=== PATIENT | female | born 1985 ===

== ENCOUNTER 2017-12-28 18:36 | Inpatient (IN) | payer BC ==
[2017-12-28 18:36] VITALS: BMI 28.7
[2017-12-28 20:03] LABS: BASO % 0.5 % (0.0-2.0); EOS % 0.6 % (0.0-4.0); HEMOGLOBIN 13.7 g/dL (11.0-16.0); LYMPH # 2.2 K/uL (1.0-4.3); LYMPH % 26.2 % (20.0-40.0); MEAN CELL VOLUME 84.2 fL (81.0-99.0); MEAN CORPUSCULAR HEMOGLOBIN 28.6 pg (27.0-31.0); MEAN CORPUSCULAR HGB CONC 33.9 g/dL (33.0-37.0); MEAN PLATELET VOLUME 8.4 fL (7.2-11.7); MONO # 0.4 K/uL (0.0-0.8); MONO % 4.5 % (0.0-10.0); NEUT # 5.8 K/uL (1.8-7.0); NEUT % 68.2 % (50.0-75.0); NRBC % 0.1 % (0.0-2.0); RBC 4.81 Mil/uL (3.80-5.20); RED CELL DISTRIBUTION WIDTH 12.9 % (11.5-14.5); WHITE BLOOD COUNT 8.5 K/uL (4.8-10.8)
[2017-12-28 20:16] LABS: ALB/GLOB RATIO 0.9 (1.0-2.1); ALBUMIN 4.4 g/dL (3.5-5.0); ALT/SGPT 25 U/L (9-52); AST/SGOT 27 U/L (14-36); BLOOD UREA NITROGEN 12 mg/dL (7-17); CALCIUM 9.1 mg/dl (8.6-10.4); GFR AFRICAN-AMERICAN > 60; GFR NON-AFRICAN AMERICAN > 60
[2017-12-28] MEDS ORDERED: Charcoal 50 gm/240 ml Susp PO ONE (20:17)
[2017-12-28 20:19] LABS: ACETAMINOPHEN < 10.0 ug/mL (10.0-30.0); SALICYLATE < 1.0 mg/dL 1
[2017-12-28 20:20] LABS: SQUAMOUS EPITHIAL 4 /hpf (0-5); URINE BACTERIA RARE (<OCC); URINE BILIRUBIN NEGATIVE (NEGATIVE); URINE BLOOD 1+ (NEGATIVE); URINE CLARITY Clear (Clear); URINE COLOR Yellow (YELLOW); URINE GLUCOSE (UA) NORMAL (Normal); URINE LEUKOCYTE ESTERASE NEG Leu/uL (Negative); URINE PROTEIN NEGATIVE (NEGATIVE); URINE UROBILINOGEN NORMAL mg/dL (0.2-1.0)
[2017-12-28] MEDS ORDERED: Sodium Chloride 0.9% 1,000 ML IV ONE ×2 (20:23→20:36)
[2017-12-28] MEDS ORDERED: Charcoal 50 gm/240 ml Susp ONE (20:25)
--- NOTE | 2017-12-28 20:28 | C.PDOC ---
History Of Present Illness 32 year old female presents to the emergency department with complaints of dizziness and vomiting status-post taking 10 tablets of 600mg Ibuprofen at 2: 35pm this afternoon. Patient states she took the medication because of experiencing breast pain and back pain. Patient reports having two episodes of loose stools at home prior to arrival. Patient has a past-medical history of hypothyroidism status-post thyroidectomy, for which she is currently taking Levothyroxine. Time Seen by Provider: 12/28/17 19:22 Chief Complaint (Nursing): Substance Abuse History Per: Patient History/Exam Limitations: no limitations Onset/Duration Of Symptoms: Hrs Current Symptoms Are (Timing): Still Present Suicide/Self Injury Attempted (Context): None Modifying Factor(s): Other (ibuprofen) Associated Symptoms: Other (dizziness, vomiting, weakness, breast pain, back pain). denies: Suicidal Plan Past Medical History Reviewed: Historical Data, Nursing Documentation, Vital Signs Vital Signs: Last Vital Signs Temp 97.8 F 12/28/17 20:17 Pulse 85 12/28/17 20:17 Resp 14 12/28/17 20:17 BP 115/75 12/28/17 20:17 Pulse Ox 100 12/28/17 21:53 - Medical History PMH: Hypothyroidism Other Surgeries: Thyroidectomy - [facility] Procedures LOW CERVICAL (12/17/13) Family History: States: No Known Family Hx - Social History Hx Tobacco Use: No Hx Alcohol Use: No Hx Substance Use: No Review Of Systems Except As Marked, All Systems Reviewed And Found Negative. Constitutional: Positive for: Weakness. Negative for: Fever, Chills Eyes: Negative for: Pain, Vision Change, Conjunctivae Inflammation ENT: Negative for: Ear Pain, Ear Discharge, Nose Pain, Nose Discharge, Nose Congestion, Mouth Pain Cardiovascular: Negative for: Chest Pain, Palpitations, Orthopnea, Paroxysmal Noc. Dyspnea Respiratory: Negative for: Cough, Shortness of Breath Gastrointestinal: Positive for: Vomiting, Diarrhea (2 episodes of loose stools) Genitourinary: Negative for: Dysuria, Frequency, Hematuria Musculoskeletal: Positive for: Back Pain, Other (breast pain). Negative for: Neck Pain, Shoulder Pain, Arm Pain Skin: Negative for: Rash Neurological: Positive for: Dizziness. Negative for: Weakness, Numbness Psych: Negative for: Anxiety, Depression Physical Exam - Physical Exam Appears: Non-toxic, No Acute Distress Skin: Normal Color, Warm, Dry Head: Atraumatic, Normacephalic Eye(s): bilateral: Normal Inspection, PERRL, EOMI Nose: Normal Oral Mucosa: Moist Tongue: Normal Appearing Lips: Normal Appearing Teeth: Normal Dentition Gingiva: Normal Appearing Chest: Symmetrical Cardiovascular: Rhythm Regular, No Murmur Respiratory: Normal Breath Sounds, No Rales, No Rhonchi, No Wheezing Gastrointestinal/Abdominal: Normal Exam, Soft, No Tenderness, No Distention Back: Normal Inspection Extremity: Normal ROM, Other (normal color and temperature) Extremity: Bilateral: Atraumatic, Normal ROM Neurological/Psych: Oriented x3, Normal Speech ED Course And Treatment - Laboratory Results Result Diagrams: 12/28/17 19:58 12/28/17 19:58 ECG: Interpreted By Me, Viewed By Me ECG Rhythm: Sinus Rhythm Interpretation Of ECG: NC 152. QRS 92. QT 364. QTC 427. No ischemic changes Rate From EC O2 Sat by Pulse Oximetry: 100 (RA) Pulse Ox Interpretation: Normal Critical Care Time - Critical Care Note Total Time (in mins): 45 Documented critical care: time excludes all time spent performing seperately billable procedures. Medical Decision Making Medical Decision Making: Plan: EKG Tylenol Alcohol Serum CMP Drug Screen Lipase Salicylate CBC CXR Two Views Activated Charcoal 50gm PO NaCl IV Fluids Zofran 4mg IVP Urinalysis Called Poison Control and spoke to Nemo Sheth. Toxic dose is 150mg/kg. Patient is being given fluids and her labs are being ordered. Results: CBC is unremarkable. Bicarbonate at 17 and Anion Gap at 24. 1+ Urine blood, alcohol undetectable. Patient's chemistry will be repeated and she will be hydrated with 2L of fluid. Disposition Counseled Patient/Family Regarding: Diagnosis - Disposition Disposition: HOME/ ROUTINE Disposition Time: 23:45 Condition: FAIR - Clinical Impression Clinical Impression: Overdose, Increased anion gap metabolic acidosis - Scribe Statement The provider has reviewed the documentation as recorded by the Scribe (Nathen Glynn) Provider Attestation: All medical record entries made by the Scribe were at my direction and personally dictated by me. I have reviewed the chart and agree that the record accurately reflects my personal performance of the history, physical exam, medical decision making, and the department course for this patient. I have also personally directed, reviewed, and agree with the discharge instructions and disposition.
[2017-12-28 20:46] LABS: BARBITURATES, UR NEGATIVE (NEGATIVE); BENZODIAZEPINES, UR NEGATIVE (NEGATIVE); OPIATES, UR NEGATIVE (NEGATIVE); PHENCYCLIDINE, UR NEGATIVE (NEGATIVE)
[2017-12-28] MEDS: Sodium Chloride 0.9% 1,000 ML IV SCH (23:00)
[2017-12-29 01:16] VITALS: RESP 20
[2017-12-29 06:41] LABS: MEAN CELL VOLUME 84.2 fL (81.0-99.0); MEAN CORPUSCULAR HGB CONC 34.4 g/dL (33.0-37.0); MEAN PLATELET VOLUME 8.2 fL (7.2-11.7); RBC 3.79 Mil/uL (3.80-5.20); RED CELL DISTRIBUTION WIDTH 12.8 % (11.5-14.5); WHITE BLOOD COUNT 9.5 K/uL (4.8-10.8)
[2017-12-29 06:50] LABS: ACETAMINOPHEN < 10.0 ug/mL (10.0-30.0); SALICYLATE < 1.0 mg/dL 1
[2017-12-29] MEDS: Sodium Chloride 0.9% 1,000 ML IV SCH ×2 (06:55→10:21)
[2017-12-29 07:09] LABS: ALB/GLOB RATIO 1.1 (1.0-2.1); ALBUMIN 3.8 g/dL (3.5-5.0); ALT/SGPT 20 U/L (9-52); AST/SGOT 29 U/L (14-36); BLOOD UREA NITROGEN 8 mg/dL (7-17); CALCIUM 7.4 mg/dl (8.6-10.4); GFR AFRICAN-AMERICAN > 60; GFR NON-AFRICAN AMERICAN > 60
--- NOTE | 2017-12-29 07:49 | RAD ---
HISTORY: abd pain COMPARISON: None TECHNIQUE: Chest PA and lateral FINDINGS: LUNGS: No focal consolidation is seen. PLEURA: No pleural effusion is identified. CARDIOVASCULAR: Heart size is within normal limits. OSSEOUS STRUCTURES: Visualized osseous structures are unremarkable. VISUALIZED UPPER ABDOMEN: Unremarkable. OTHER FINDINGS: None. IMPRESSION: No acute cardiopulmonary process seen.
[2017-12-29 08:31] VITALS: BP 103/67; PULSE 86; TEMP 98.5; O2SAT 98
--- NOTE | 2017-12-29 09:09 | CP.PCM.HP ---
History of Present Illness - History of Present Illness History of Present Illness: Chief Complaint: Substance Abuse History Of Present Illness 32 year old female presents to the emergency department with complaints of dizziness and vomiting status-post taking 10 tablets of 600mg Ibuprofen at 2: 35pm this afternoon. Patient states she took the medication because of experiencing breast pain and back pain. Patient reports having two episodes of loose stools at home prior to arrival. Patient has a past-medical history of hypothyroidism status-post thyroidectomy, for which she is currently taking Levothyroxine. Present on Admission - Present on Admission Any Indicators Present on Admission: No Past Patient History - Past Social History Smoking Status: Never Smoked - ENDOCRINE/METABOLIC Hx Hypothyroidism: Yes - MUSCULOSKELETAL/RHEUMATOLOGICAL Hx Falls: No - PSYCHIATRIC Hx Substance Use: No - SURGICAL HISTORY Hx Surgeries: Yes Hx Section: Yes (2013) Hx Thyroidectomy: Yes (2012) - ANESTHESIA Hx Anesthesia: Yes Hx Anesthesia Reactions: No Meds Allergies/Adverse Reactions: Allergies Allergy/AdvReac Type Severity Reaction Status Date / Time No Known Allergies Allergy Verified 12/17/13 03:10 Results - Vital Signs Recent Vital Signs: Last Vital Signs Temp 98.5 F 12/29/17 07:35 Pulse 86 12/29/17 07:35 Resp 20 12/29/17 07:35 BP 103/67 12/29/17 07:35 Pulse Ox 98 12/29/17 07:35 - Labs Result Diagrams: 12/29/17 06:31 12/29/17 06:31 Labs: Laboratory Results - last 24 hr 12/28/17 12/28/17 12/28/17 19:58 19:58 19:58 WBC 8.5 D RBC 4.81 Hgb 13.7 D Hct 40.4 MCV 84.2 MCH 28.6 MCHC 33.9 RDW 12.9 Plt Count 386 D MPV 8.4 Neut % (Auto) 68.2 Lymph % (Auto) 26.2 [place] % (Auto) 4.5 Eos % (Auto) 0.6 Baso % (Auto) 0.5 Neut # (Auto) 5.8 Lymph # (Auto) 2.2 [place] # (Auto) 0.4 Eos # (Auto) 0.0 Baso # (Auto) 0.0 Sodium 143 Potassium 4.1 Chloride 106 Carbon Dioxide 17 L Anion Gap 24 H BUN 12 Creatinine 0.7 Est GFR ( Amer) > 60 Est GFR (Non-Af Amer) > 60 Random Glucose 105 Calcium 9.1 Total Bilirubin 1.0 AST 27 ALT 25 Alkaline Phosphatase 82 Total Protein 9.0 H Albumin 4.4 Globulin 4.7 H Albumin/Globulin Ratio 0.9 L Lipase Urine Color Urine Clarity Urine pH Ur Specific [place] Urine Protein Urine Glucose (UA) Urine Ketones Urine Blood Urine Nitrate Urine Bilirubin Urine Urobilinogen Ur Leukocyte Esterase Urine WBC (Auto) Urine RBC (Auto) Ur Squamous Epith Cells Urine Bacteria Urine HCG, Qual Salicylates < 1.0 Urine Opiates Screen Urine Methadone Screen Acetaminophen < 10.0 L Ur Barbiturates Screen Ur Phencyclidine Scrn Ur Amphetamines Screen U Benzodiazepines Scrn U Oth Cocaine Metabols U Cannabinoids Screen Alcohol, Quantitative < 10 12/28/17 12/28/17 12/28/17 20:03 20:03 20:03 WBC RBC Hgb Hct MCV MCH MCHC RDW Plt Count MPV Neut % (Auto) Lymph % (Auto) [place] % (Auto) Eos % (Auto) Baso % (Auto) Neut # (Auto) Lymph # (Auto) [place] # (Auto) Eos # (Auto) Baso # (Auto) Sodium Potassium Chloride Carbon Dioxide Anion Gap BUN Creatinine Est GFR ( Amer) Est GFR (Non-Af Amer) Random Glucose Calcium Total Bilirubin AST ALT Alkaline Phosphatase Total Protein Albumin Globulin Albumin/Globulin Ratio Lipase Urine Color Yellow Urine Clarity Clear Urine pH 5.0 Ur Specific [place] 1.018 Urine Protein Negative Urine Glucose (UA) Normal Urine Ketones Negative Urine Blood 1+ H Urine Nitrate Negative Urine Bilirubin Negative Urine Urobilinogen Normal Ur Leukocyte Esterase Neg Urine WBC (Auto) 3 Urine RBC (Auto) 8 H Ur Squamous Epith Cells 4 Urine Bacteria Rare Urine HCG, Qual Negative Salicylates Urine Opiates Screen Negative Urine Methadone Screen Negative Acetaminophen Ur Barbiturates Screen Negative Ur Phencyclidine Scrn Negative Ur Amphetamines Screen Negative U Benzodiazepines Scrn Negative U Oth Cocaine Metabols Negative U Cannabinoids Screen Negative Alcohol, Quantitative 12/28/17 12/29/17 12/29/17 20:36 06:31 06:31 WBC 9.5 RBC 3.79 L Hgb 11.0 D Hct 31.9 L MCV 84.2 MCH 29.0 MCHC 34.4 RDW 12.8 Plt Count 302 MPV 8.2 Neut % (Auto) Lymph % (Auto) [place] % (Auto) Eos % (Auto) Baso % (Auto) Neut # (Auto) Lymph # (Auto) [place] # (Auto) Eos # (Auto) Baso # (Auto) Sodium 144 Potassium 4.0 Chloride 117 H Carbon Dioxide 17 L Anion Gap 14 BUN 8 Creatinine 0.7 Est GFR ( Amer) > 60 Est GFR (Non-Af Amer) > 60 Random Glucose 77 Calcium 7.4 L Total Bilirubin 0.7 AST 29 ALT 20 Alkaline Phosphatase 53 Total Protein 7.1 Albumin 3.8 Globulin 3.3 Albumin/Globulin Ratio 1.1 Lipase 157 Urine Color Urine Clarity Urine pH Ur Specific [place] Urine Protein Urine Glucose (UA) Urine Ketones Urine Blood Urine Nitrate Urine Bilirubin Urine Urobilinogen Ur Leukocyte Esterase Urine WBC (Auto) Urine RBC (Auto) Ur Squamous Epith Cells Urine Bacteria Urine HCG, Qual Salicylates Urine Opiates Screen Urine Methadone Screen Acetaminophen Ur Barbiturates Screen Ur Phencyclidine Scrn Ur Amphetamines Screen U Benzodiazepines Scrn U Oth Cocaine Metabols U Cannabinoids Screen Alcohol, Quantitative 12/29/17 06:31 WBC RBC Hgb Hct MCV MCH MCHC RDW Plt Count MPV Neut % (Auto) Lymph % (Auto) [place] % (Auto) Eos % (Auto) Baso % (Auto) Neut # (Auto) Lymph # (Auto) [place] # (Auto) Eos # (Auto) Baso # (Auto) Sodium Potassium Chloride Carbon Dioxide Anion Gap BUN Creatinine Est GFR ( Amer) Est GFR (Non-Af Amer) Random Glucose Calcium Total Bilirubin AST ALT Alkaline Phosphatase Total Protein Albumin Globulin Albumin/Globulin Ratio Lipase Urine Color Urine Clarity Urine pH Ur Specific [place] Urine Protein Urine Glucose (UA) Urine Ketones Urine Blood Urine Nitrate Urine Bilirubin Urine Urobilinogen Ur Leukocyte Esterase Urine WBC (Auto) Urine RBC (Auto) Ur Squamous Epith Cells Urine Bacteria Urine HCG, Qual Salicylates < 1.0 Urine Opiates Screen Urine Methadone Screen Acetaminophen < 10.0 L Ur Barbiturates Screen Ur Phencyclidine Scrn Ur Amphetamines Screen U Benzodiazepines Scrn U Oth Cocaine Metabols U Cannabinoids Screen Alcohol, Quantitative
--- NOTE | 2017-12-29 13:18 | CP.PCM.PN ---
Subjective - Date & Time of Evaluation Date of Evaluation: 12/29/17 Time of Evaluation: 11:20 - Subjective Subjective: Patient seen today , denies any abdominal pain,dizziness, N/V/D, Objective - Vital Signs/Intake and Output Vital Signs (last 24 hours): Temp Pulse Resp BP Pulse Ox 98.5 F 86 20 103/67 98 12/29/17 07:35 12/29/17 07:35 12/29/17 07:35 12/29/17 07:35 12/29/17 07:35 - Medications Medications: Current Medications Sodium Chloride (Sodium Chloride 0.9%) 1,000 mls @ 100 mls/hr IV .Q10H VALERIA Last Admin: 12/29/17 10:21 Dose: Not Given - Labs Labs: 12/29/17 06:31 12/29/17 06:31 Assessment and Plan - Assessment and Plan (Free Text) Assessment: A/P 32 yr old female admitted with with dizziness and vomiting s/p overdose with Ibuprofen at home Patient clinically improved with IVF and labs works done this am shows improvement in anion gap from 24- [address] Stevenson ,stable for discharge home today and f/u with his office in 1 week discharge instructions discussed with patient and husbands at bedside who understands and agrees with plan patient instructed to returns to ED if symptoms returns or any other concerning symptoms
[2017-12-29 14:14] LABS: HEMOGLOBIN 11.1 g/dL (11.0-16.0); MEAN CELL VOLUME 84.2 fL (81.0-99.0); MEAN CORPUSCULAR HEMOGLOBIN 28.7 pg (27.0-31.0); MEAN CORPUSCULAR HGB CONC 34.1 g/dL (33.0-37.0); MEAN PLATELET VOLUME 8.6 fL (7.2-11.7); RBC 3.86 Mil/uL (3.80-5.20); RED CELL DISTRIBUTION WIDTH 13.1 % (11.5-14.5); WHITE BLOOD COUNT 9.2 K/uL (4.8-10.8)
--- NOTE | 2017-12-30 00:07 | CP.PCM.DIS ---
Provider - Provider Date of Admission: 12/28/17 21:30 Attending physician: Myles Stevenson MD Time Spent in preparation of Discharge (in minutes): 45 Hospital Course - Lab Results Lab Results: Most Recent Lab Values WBC 9.2 K/uL (4.8-10.8) 12/29/17 14:04 RBC 3.86 Mil/uL (3.80-5.20) 12/29/17 14:04 Hgb 11.1 g/dL (11.0-16.0) 12/29/17 14:04 Hct 32.5 % (34.0-47.0) L 12/29/17 14:04 MCV 84.2 fL (81.0-99.0) 12/29/17 14:04 MCH 28.7 pg (27.0-31.0) 12/29/17 14:04 MCHC 34.1 g/dL (33.0-37.0) 12/29/17 14:04 RDW 13.1 % (11.5-14.5) 12/29/17 14:04 Plt Count 305 K/uL (130-400) 12/29/17 14:04 MPV 8.6 fL (7.2-11.7) 12/29/17 14:04 Neut % (Auto) 68.2 % (50.0-75.0) 12/28/17 19:58 Lymph % (Auto) 26.2 % (20.0-40.0) 12/28/17 19:58 [place] % (Auto) 4.5 % (0.0-10.0) 12/28/17 19:58 Eos % (Auto) 0.6 % (0.0-4.0) 12/28/17 19:58 Baso % (Auto) 0.5 % (0.0-2.0) 12/28/17 19:58 Neut # (Auto) 5.8 K/uL (1.8-7.0) 12/28/17 19:58 Lymph # (Auto) 2.2 K/uL (1.0-4.3) 12/28/17 19:58 [place] # (Auto) 0.4 K/uL (0.0-0.8) 12/28/17 19:58 Eos # (Auto) 0.0 K/uL (0.0-0.7) 12/28/17 19:58 Baso # (Auto) 0.0 K/uL (0.0-0.2) 12/28/17 19:58 Sodium 144 mmol/L (132-148) 12/29/17 06:31 Potassium 4.0 mmol/L (3.6-5.2) 12/29/17 06:31 Chloride 117 mmol/L (98-107) H 12/29/17 06:31 Carbon Dioxide 17 mmol/L (22-30) L 12/29/17 06:31 Anion Gap 14 (10-20) 12/29/17 06:31 BUN 8 mg/dL (7-17) 12/29/17 06:31 Creatinine 0.7 mg/dL (0.7-1.2) 12/29/17 06:31 Est GFR ( Amer) > 60 12/29/17 06:31 Est GFR (Non-Af Amer) > 60 12/29/17 06:31 Random Glucose 77 mg/dL (65-105) 12/29/17 06:31 Calcium 7.4 mg/dl (8.6-10.4) L 12/29/17 06:31 Total Bilirubin 0.7 mg/dL (0.2-1.3) 12/29/17 06:31 AST 29 U/L (14-36) 12/29/17 06:31 ALT 20 U/L (9-52) 12/29/17 06:31 Alkaline Phosphatase 53 U/L (38-126) 12/29/17 06:31 Total Protein 7.1 g/dL (6.3-8.3) 12/29/17 06:31 Albumin 3.8 g/dL (3.5-5.0) 12/29/17 06:31 Globulin 3.3 gm/dL (2.2-3.9) 12/29/17 06:31 Albumin/Globulin Ratio 1.1 (1.0-2.1) 12/29/17 06:31 Lipase 157 U/L (23-300) 12/28/17 20:36 Urine Color Yellow (YELLOW) 12/28/17 20:03 Urine Clarity Clear (Clear) 12/28/17 20:03 Urine pH 5.0 (5.0-8.0) 12/28/17 20:03 Ur Specific [place] 1.018 (1.003-1.030) 12/28/17 20:03 Urine Protein Negative mg/dL (NEGATIVE) 12/28/17 20:03 Urine Glucose (UA) Normal mg/dL (Normal) 12/28/17 20:03 Urine Ketones Negative mg/dL (NEGATIVE) 12/28/17 20:03 Urine Blood 1+ (NEGATIVE) H 12/28/17 20:03 Urine Nitrate Negative (NEGATIVE) 12/28/17 20:03 Urine Bilirubin Negative (NEGATIVE) 12/28/17 20:03 Urine Urobilinogen Normal mg/dL (0.2-1.0) 12/28/17 20:03 Ur Leukocyte Esterase Neg [place]/uL (Negative) 12/28/17 20:03 Urine WBC (Auto) 3 /hpf (0-5) 12/28/17 20:03 Urine RBC (Auto) 8 /hpf (0-3) H 12/28/17 20:03 Ur Squamous Epith Cells 4 /hpf (0-5) 12/28/17 20:03 Urine Bacteria Rare (<OCC) 12/28/17 20:03 Urine HCG, Qual Negative (NEGATIVE) 12/28/17 20:03 Salicylates < 1.0 mg/dL 1 12/29/17 06:31 Urine Opiates Screen Negative (NEGATIVE) 12/28/17 20:03 Urine Methadone Screen Negative (NEGATIVE) 12/28/17 20:03 Acetaminophen < 10.0 ug/mL (10.0-30.0) L 12/29/17 06:31 Ur Barbiturates Screen Negative (NEGATIVE) 12/28/17 20:03 Ur Phencyclidine Scrn Negative (NEGATIVE) 12/28/17 20:03 Ur Amphetamines Screen Negative (NEGATIVE) 12/28/17 20:03 U Benzodiazepines Scrn Negative (NEGATIVE) 12/28/17 20:03 U Oth Cocaine Metabols Negative (NEGATIVE) 12/28/17 20:03 U Cannabinoids Screen Negative (NEGATIVE) 12/28/17 20:03 Alcohol, Quantitative < 10 mg/dl (0-10) 12/28/17 19:58 Discharge Plan - Follow Up Plan Condition: FAIR Disposition: HOME/ ROUTINE Instructions: Metabolic Acidosis Additional Instructions: Please f/u with Dr. Stevenson office in 1 week- call and make appointment Please watch for any blood in the stool Please returns to ED if you have severe abdominal pain, or any other concerning symptoms Referrals: Myles Stevenson MD [Staff Provider] -
--- NOTE | 2017-12-30 14:39 | CARD ---
APPROVED REPORT EKG Measurement Heart [id number] <Conclusion> Normal sinus rhythm Normal ECG
== END 2017-12-29 13:47 | disposition home or self-care (01) | DRG 918 ==
LOC: C.ER 18:36 → C.9E 21:30 → C.6T 12-29 00:08
PROVIDERS: ADMIT Internal Medicine; ATTEND Internal Medicine
DX: T39.1X1A Poisoning by 4-Aminophenol derivatives, accidental (unintentional), initial encounter (principal); E87.2 Acidosis; E89.0 Postprocedural hypothyroidism; Y92.009 Unspecified place in unspecified non-institutional (private) residence as the place of occurrence of the external cause